=== PATIENT | male | born 1975 | race Caucasian/White ===

== ENCOUNTER 2023-05-14 12:44 | Emergency (ER) | payer OTHER, SELFPAY ==
[2023-05-14] VITALS (8 sets, daily range): BP systolic 128–174; BP diastolic 96–108; PULSE 75–87; RESP 10–16; TEMP 36.1; O2SAT 95–99
--- NOTE | ~2023-05-14 | XR_ITS ---
EXAMINATION: XR chest 2V DATE: 05/14/2023 13:23 INDICATION: Chest pain. TECHNIQUE: Frontal and lateral views of the chest were obtained. COMPARISON: None. FINDINGS: There is no pneumonia, pleural effusion, or pneumothorax. The heart size is normal. IMPRESSION: 1. No acute cardiopulmonary disease. Reviewed, dictated and finalized at location A. TRUCK MECHANIC
--- NOTE | 2023-05-14 12:48 | ED.CHESTPAIN ---
HPI - Chest Pain General Chief Complaint: Chest Pain Stated Complaint: Chest Pain, Facial Numbness Time Seen by Provider: 05/14/23 12:48 Source: patient and family Mode of arrival: ambulatory Limitations: no limitations History of Present Illness HPI narrative: 47 years old white male came to the ED by car with his complaining of sudden onset of heartburn like feeling in the left chest associated was weird feeling of the fees like tingling numbness bilaterally the heartburn feeling lasted for roughly 45 minutes and a facial tingling and numbness is improving. The above symptoms occurred while patient is sitting in no physical activity he denies any shortness of breath, diaphoresis or radiation of pain. Patient is healthy otherwise not on any medications, does not smoke cigarettes, drinks daily and uses marijuana at least once a week. No family history of coronary artery disease. Patient reports a lot of stress lately. Related Data Home Medications Medication Instructions Recorded Confirmed No Home Medications 05/14/23 05/14/23 Allergies Allergy/AdvReac Type Severity Reaction Status Date / Time No Known Allergies Allergy Verified 05/14/23 14:02 Review of Systems Review of Systems: All systems reviewed & are unremarkable except as noted in HPI and below Exam Narrative: General appearance: Well-developed, well-nourished Skin: Normal color Head: Normocephalic, nontraumatic Eyes: Clear conjunctiva ENT: Oropharynx normal, ears normal, nose normal Neck: Supple, nontender Chest and respiratory: Airway patent, no respiratory distress, no accessory muscle use Heart: Regular rate/rhythm Abdomen: Soft, nontender, no organomegaly, quiet bowel sounds Vascular: Normal peripheral pulses, normal capillary refill. Musculoskeletal: Normal range of motion, nontender back Neurologic: Alert and oriented ?3, [employer]OR is normal as tested, no gross motor deficit Course Vital Signs Vital signs: Vital Signs Temperature 36.1 C L 05/14/23 12:50 Pulse Rate 87 05/14/23 12:50 Respiratory Rate 16 05/14/23 12:50 Blood Pressure 174/108 H 05/14/23 12:50 Pulse Oximetry 99 05/14/23 12:50 Oxygen Delivery Room Air 05/14/23 12:50 Temperature 36.1 C L 05/14/23 12:50 Pulse Rate 76 05/14/23 15:30 Respiratory Rate 16 05/14/23 15:30 Blood Pressure 133/97 H 05/14/23 15:30 Pulse Oximetry 97 05/14/23 15:30 Oxygen Delivery Room Air 05/14/23 13:10 MDM - Chest Pain MDM Narrative Medical decision making narrative: 47 years old white male came to the ED with left chest burning sensation and numbness all over the face started within 1 hour prior to arrival. Patient have no coronary artery risk factors, does not smoke, no family history of coronary artery disease, lot of stress lately. Physical examination is unremarkable, vital signs on arrival showed a blood pressure 174/108, at the time of discharge 133/97. Workup today showed Include a blood,, chest x-ray and EKG showed no acute abnormalities. In the ED patient received 1 mg of Ativan, was significant improvement of the Facial numbness.. Patient did not experience any chest pain during ED visit. Until the time of discharge. anxiety like symptoms as my concern. Differential Diagnosis Differential diagnosis: Likely pneumothorax, stable angina, atypical chest pain, costochondritis and chest pain Medical Records Data Attestation: I reviewed the patient's medical records. Lab Data Attestation: I reviewed the patient's lab results. 05/14/23 13:11 05/14/23 13:11 Labs: Lab Results 05/14/23 05/14/23 Range/Units 13:11 15:48 WBC 7.2 (
--- NOTE | 2023-05-14 12:52 | ECG_ITS ---
Measurements Intervals [place] Rate: 87 P: 45 [place]: 138 QRS: 14 QRSD: 98 T: 49 QT: 352 QTc: 425 Interpretive Statements SINUS RHYTHM BASELINE ARTIFACT- I, II, III, AVR, AVL NORMAL ECG NO PREVIOUS ECG AVAILABLE FOR COMPARISON Electronically Signed On 05-14-2023 16:24:31 COUNTY ASSESSOR by Scotty Bautista D.O.
[2023-05-14 13:20] LABS: Basophils Percent Auto 0.4 % (0.2-1.2); Eosinophils Absolute Auto 0.1 K/mm3 (0-0.3); Eosinophils Percent Auto 1.1 % (0-4.4); Hematocrit 45.1 % (42.0-52.0); Hemoglobin 15.2 g/dL (14.0-18.0); Immature Granulocyte Absolute 0.03 K/mm3 (0.00-0.031); Immature Granulocyte Percent A 0.4 % (0-0.5); Lymphocytes Absolute Auto 2.15 K/mm3 (0.9-3.2); Lymphocytes Percent Auto 29.9 % (18.3-44.2); Mean Corpuscular HGB Conc 33.7 g/dl (32-36); Mean Corpuscular Hemoglobin 29.3 pg (26-34); Mean Corpuscular Volume 86.9 fl (80-100); Monocytes Absolute Auto 0.6 K/mm3 (0.1-0.6); Monocytes Percent Auto 8.5 % (2.6-8.5); Neutrophils Absolute Auto 4.3 K/mm3 (1.3-6.7); Neutrophils Percent Auto 59.7 % (45.5-73.1); Platelet Count Result 261 k/mm3 (150-375); Red Blood Count 5.19 M/mm3 (4.6-6.20); Red Cell Distribution Width 12.1 % (11.5-14.5); White Blood Count 7.2 K/mm3 (4.5-10.0)
[2023-05-14] MEDS: ASPIRIN 81 MG CHEWABLE TABLET 162 MG PO (13:30)
[2023-05-14] MEDS: LORazepam INJ (*CRX) 2 MG/ML VIAL 1 MG IV PUSH (13:30)
[2023-05-14] MEDS: Please add drug allergy info to patient profile. 1 EACH XX (13:30)
[2023-05-14 13:33] LABS: Alanine Aminotransferase 45 U/L (6-50); Albumin Level 4.5 g/dL (3.5-5.1); Alkaline Phosphatase 72 U/L (38-126); Anion Gap 10 mmol/L (8-16); Aspartate Amino Transferase 34 U/L (17-59); Bilirubin,Total 0.8 mg/dL (0.2-1.3); Blood Urea Nitrogen 14 mg/dL (9-20); Calcium 9.3 mg/dL (8.4-10.2); Carbon Dioxide 26 mmol/L (22-30); Chloride 105 mmol/L (98-107); Estimated CRCL calculation 99 ml/min; Estimated Glomerular Filt Rate > 60; Glucose 106 mg/dL (65-110); Lipase 163 U/L (23-300); Sodium 141 mmol/L (137-145)
[2023-05-14 13:37] LABS: INR 0.9; Prothrombin Time 12.8 Seconds (11.1-14.7)
[2023-05-14 13:38] LABS: Partial Thromboplastin Time 26.5 SECONDS (22.3-36.8)
[2023-05-14 13:43] LABS: Troponin I < 0.012 ng/mL (0.000-0.034)
[2023-05-14 16:23] LABS: Troponin I < 0.012 ng/mL (0.000-0.034)
--- NOTE | 2023-05-14 16:42 | ECG_ITS ---
Measurements Intervals [place] Rate: 68 P: 17 [place]: 162 QRS: 5 QRSD: 113 T: 18 QT: 389 QTc: 414 Interpretive Statements SINUS RHYTHM INTRAVENTRICULAR CONDUCTION DELAY BORDERLINE ECG COMPARED TO ECG 05/14/2023 12:53:03 INTRAVENTRICULAR CONDUCTION DELAY NOW PRESENT Electronically Signed On 05-14-2023 20:59:58 LGSW by Scotty Bautista D.O.
== END 2023-05-14 17:00 | disposition home or self-care (01) ==
PROVIDERS: Emergency Provider Emergency Medicine
DX: R07.9 Chest pain, unspecified (principal); I45.9 Conduction disorder, unspecified
CPT/HCPCS: 36415; 71046; 80053; 83690; 84484; 85025; 85610; 85730; 93005; 96374; 99284; A9270; J2060